=== PATIENT | male | born 1990 | race Caucasian/White ===

== ENCOUNTER 2020-10-26 07:39 | Outpatient (CLI) | payer OTHER ==
--- NOTE | 2020-10-26 11:24 | XRAY Report ---
PROCEDURE: Foot 3 View RT INDICATIONS: R FOOT PX TECHNIQUE: 3 views of the foot were acquired. COMPARISON: None FINDINGS: Bones: Mildly displaced fracture of the fifth proximal phalange. Fracture does not extend into the lizzy int surface. No suspicious bony lesions. Soft tissues: No tibiotalar joint effusion. Achilles tendon appears normal. IMPRESSION: Nondisplaced fifth proximal phalange fracture. Reviewed by: Jenny Macias MD, PhD on 10/26/2020 11:22 AM PDT Approved by: Jenny Macias MD, PhD on 10/26/2020 11:22 AM PDT Station ID: [id number]
== END 2020-10-26 23:59 | disposition home or self-care (01) ==
LOC: DI.N 07:39
PROVIDERS: ATTEND Orthopaedic Surgery
DX: S92.514A Nondisplaced fracture of proximal phalanx of right lesser toe(s), initial encounter for closed fracture (principal)

== ENCOUNTER 2020-11-30 08:00 | Outpatient (CLI) | payer OTHER ==
--- NOTE | 2020-11-30 09:24 | XRAY Report ---
PROCEDURE: Foot 3 View RT INDICATIONS: NONDISPLACED FX OF PROXIMAL PHALANX OF R LESSER TOE TECHNIQUE: 3 views of the foot were acquired. COMPARISON: 10/26/2020 FINDINGS: Bones: Again noted is oblique fracture through fifth proximal phalangeal shaft with minimal diastases at fracture site not significantly changed from prior study. No new fracture or dislocation is seen. Alignment of right foot is anatomic. No suspicious bony lesions. Soft tissues: No tibiotalar joint effusion. Achilles tendon appears normal. IMPRESSION: Stable fifth proximal phalangeal shaft fracture with stable right foot alignment. No new fracture or dislocation. Reviewed by: Edin Hurst MD on 11/30/2020 9:23 AM PDT Approved by: Edin Hurst MD on 11/30/2020 9:23 AM PDT Station ID: [id number]
== END 2020-11-30 23:59 | disposition home or self-care (01) ==
LOC: DI.N 08:00
PROVIDERS: ATTEND Orthopaedic Surgery
DX: S92.511D Displaced fracture of proximal phalanx of right lesser toe(s), subsequent encounter for fracture with routine healing (principal)